=== PATIENT | male | born 2005 | race Caucasian/White ===

== ENCOUNTER 2025-08-11 01:01 | Inpatient (IN) ==
[2025-08-11] MEDS: SODIUM CHLORIDE 0.9% 1,000 ML IV STA (01:14)
[2025-08-11] MEDS: MoRPHine SULFATE 4 MG/ML 1 ML CARP\\VIAL IV PRN (01:14)
[2025-08-11] MEDS: ONDANSETRON INJ 2 MG/ML 2 ML VIAL IV STA ×2 (01:15→03:05)
[2025-08-11] MEDS: ONDANSETRON INJ 2 MG/ML 2 ML VIAL ONE (01:15)
[2025-08-11] MEDS: MoRPHine SULFATE 4 MG/ML 1 ML CARP\\VIAL ONE (01:15)
--- NOTE | 2025-08-11 01:16 | Emergency Department Note ---
History of Present Illness General Chief complaint: Abdominal Pain Stated complaint: ABD PAIN, NAUSEA Time Seen by Provider: 08/11/25 01:07 History of Present Illness Maximum Pain Intensity: 8 This 19-year-old male presents ER complaining of sudden onset of severe mid abdominal pain. He states this feels different than his kidney stone and known hydronephrosis of the ureter. He states his urologist is just observing the hydronephrosis at this time. Patient denies chest pain, dyspnea, fevers, vomiting, diarrhea, penile pain, testicular pain, injury to the area. No alcohol or drug use today. No excessive exercise today. He is tolerating p.o. fluids and food. Home Medications Medication Instructions Recorded Confirmed Type bismuth subsalicylate 262 mg/15 mL 524 mg PO DIRECTED PRN GI 08/11/25 08/11/25 History oral suspension (Pepto-Bismol) UPSET/PAIN Allergies Allergy/AdvReac Type Severity Reaction Status Date / Time No Known Allergies Allergy Verified 08/11/25 01:20 Past Med/Surg History Problem List Ureterolithiasis (Acute) Renal colic on left side (Acute) Intractable abdominal pain (Acute) Bilateral hydronephrosis (Acute) Social History Smoking Status: Former smoker Preferred Language: Turkmen Feels Safe at Home: Yes Review of Systems A total of 10 systems reviewed and were otherwise negative Physical Exam Vital Signs Vital Signs - 24 hr 08/11/25 01:02 08/11/25 01:18 08/11/25 01:18 Temperature 36.3 C L Temperature Source Oral Pulse Rate 88 Pulse Rate [Apical] 63 Respiratory Rate 28 H 16 Respiratory Effort / Characteristics Non-Labored Spontaneous Respiratory Depth Normal Blood Pressure 140/91 Blood Pressure [Right Arm] 137/83 Blood Pressure Mean 107 Blood Pressure Mean [Right Arm] 101 Pulse Oximetry 100 100 100 Oxygen Delivery Method Room Air Room Air Sepsis Recent Fever Within 48 Hours No Sepsis New/Unexplained Change in Mental Status N/A Sepsis Action Taken by Nursing No Action Required 08/11/25 01:30 08/11/25 02:21 Temperature Temperature Source Pulse Rate 59 L Pulse Rate [Apical] 74 Respiratory Rate 18 Respiratory Effort / Characteristics Respiratory Depth Blood Pressure Blood Pressure [Right Arm] 154/120 H Blood Pressure Mean Blood Pressure Mean [Right Arm] 131 Pulse Oximetry 99 Oxygen Delivery Method Room Air Sepsis Recent Fever Within 48 Hours Sepsis New/Unexplained Change in Mental Status Sepsis Action Taken by Nursing VITALS: Vitals are noted on the nurse's note and reviewed by myself. Vital signs stable. GENERAL: Pleasant gentleman who appears in pain, in no acute distress, nondiaphoretic, well-developed well-nourished. SKIN: Capillary reflex less than 2 seconds. HEENT: Normocephalic. PERRLA. EOMI. Nares patent. Mucous membranes moist. Neck is supple without nuchal rigidity. HEART: Regular rate and rhythm LUNGS: Clear to auscultation bilaterally without wheezes, rales or rhonchi. No retractions or accessory muscle use. ABDOMEN: Positive bowel sounds x 4. Normal tympanic percussion. Soft, tender to palpation mid abdomen, without masses or organomegaly. Stauffer sign negative. No guarding or rebound tenderness. no CVA tenderness MUSCULOSKELETAL: No gross musculoskeletal defects. NEURO: Patient was alert and oriented to person place and time. No focal neurological deficits. Course Administered Medications Hydromorphone HCl (Hydromorphone Inj 0.5 Mg/0.5 Ml Syr) 0.5 mg IV Q15M PRN PRN Reason: Pain Stop: 08/25/25 01:59 Last Admin: 08/11/25 02:20 Dose: 0.5 mg Documented By: EMILIANO Morphine Sulfate (Morphine Sulfate 4 Mg/Ml 1 Ml Carp\Vial) 4 mg IV Q15M PRN PRN Reason: Pain Stop: 08/25/25 01:10 Last Admin: 08/11/25 02:10 Dose: 4 mg Documented By: abl Admin: 08/11/25 01:47 Dose: 4 mg Documented By: Admin: 08/11/25 01:29 Dose: 4 mg Documented By: patrick Admin: 08/11/25 01:14 Dose: 4 mg Documented By: JARRETTW Discontinued Medications Sodium Chloride (Nss) 1,000 mls @ 999 mls/hr IV .Q1H1M STA Stop: 08/11/25 02:11 Last Infusion: 08/11/25 02:16 Dose: Infused Documented By: abl Admin: 08/11/25 01:14 Dose: 999 mls/hr Documented By: REMI Sodium Chloride (Nss) 1,000 mls @ 999 mls/hr IV .Q1H1M ONE Stop: 08/11/25 02:26 Last Admin: 08/11/25 02:30 Dose: Not Given Documented By: evan Ioversol (Optiray 320 100ml) 95 ml IV ONCE ONE Stop: 08/11/25 01:57 Last Admin: 08/11/25 01:56 Dose: 95 ml Documented By: GLORIA Morphine Sulfate (Morphine Sulfate 4 Mg/Ml 1 Ml Carp\Vial) Confirm Administered Dose 4 mg .ROUTE .STK-MED ONE Stop: 08/11/25 01:12 Last Admin: 08/11/25 01:15 Dose: Not Given Documented By: REMI Ondansetron HCl (Ondansetron Inj 2 Mg/Ml 2 Ml Vial) Confirm Administered Dose 4 mg .ROUTE .STK-MED ONE Stop: 08/11/25 01:12 Last Admin: 08/11/25 01:15 Dose: Not Given Documented By: REMI Ondansetron HCl (Ondansetron Inj 2 Mg/Ml 2 Ml Vial) 4 mg IV NOW STA Stop: 08/11/25 01:12 Last Admin: 08/11/25 01:15 Dose: 4 mg Documented By: REMI Ondansetron HCl (Ondansetron Inj 2 Mg/Ml 2 Ml Vial) 4 mg IV NOW STA Stop: 08/11/25 03:03 Last Admin: 08/11/25 03:05 Dose: 4 mg Documented By: evan Medical Decision Making Medical Records Attestation: I reviewed the patient's medical records. Home Medications Current Medication List: was personally reviewed by mo Laboratory Data Attestation: I reviewed the patient's lab results. 08/11/25 01:11 08/11/25 01:11 Lab Results 08/11/25 08/11/25 08/11/25 Range/Units 01:11 01:14 01:21 WBC 12.27 H (4.8-10.8) K/ul RBC 4.94 (4.70-6.10) M/uL Hgb 14.1 (14.0-18.0) g/dl POC Hgb 14.3 (14.0-18.0) g/dl Hct 40.5 L (42.0-52.0) % POC Hct 42 (42-52) % MCV 82.0 (80.0-100.0) fL MCH 28.5 (25.0-34.0) pg MCHC 34.8 (32.0-36.0) g/dL RDW Std Deviation 36.5 (36.4-46.3) fL RDW Coeff of Phoebe 12.3 (11.5-14.5) % Plt Count 329 (130-400) K/uL MPV 9.3 L (9.4-12.4) fL Immature Gran % (Auto) 0.2 % Neut % (Auto) 59.2 % Lymph % (Auto) 26.8 % Craig % (Auto) 11.7 % Eos % (Auto) 1.7 % Baso % (Auto) 0.4 % Neut # (Auto) 7.27 H (1.40-6.50) K/uL Lymph # (Auto) 3.29 (1.20-3.40) K/uL Craig # (Auto) 1.43 H (0.11-0.59) K/uL Eos # (Auto) 0.21 (0.00-0.50) K/uL Baso # (Auto) 0.05 (0.00-0.20) K/uL Immature Gran # (Auto) 0.02 (0.01-0.20) K/uL POC Sodium 141 (135-144) mmol/L Sodium 139 (136-145) mmol/L POC Potassium 3.4 (3.3-5.0) mmol/L Potassium 3.5 (3.5-5.1) mmol/L POC Chloride 104 (101-112) mmol/L Chloride 103 (98-107) mmol/L Carbon Dioxide 29 (21-32) mmol/L POC Total CO2 26 (24-31) mmol/L Anion Gap 7 (3-11) POC Anion Gap 15.0 L (16-25) mmol/L POC BUN 21 H (7-18) mg/dl BUN 21 (6-23) mg/dl Creatinine 1.55 H (0.6-1.4) mg/dl POC Creatinine 1.8 H (0.6-1.3) mg/dl Est Cr Clr Drug Dosing 77.8 ml/min eGFR 64.90 BUN/Creatinine Ratio 13.5 (10-20) Glucose 113 H (70-99(Fasting)) mg/dl POC Glucose (other) 114 H (70-99) mg/dl Calcium 10.0 (8.6-10.3) mg/dl POC Ioniz Calcium Sirisha 1.20 (1.12-1.32) mmol/l Total Bilirubin 0.5 (0.2-1.0) mg/dl AST 15 (13-39) U/L ALT 15 (7-52) U/L Alkaline Phosphatase 63 (34-104) U/L Total Creatine Kinase 85 (30-223) U/L Total Protein 7.9 (6.0-8.3) gm/dl Albumin 4.8 (3.4-5.0) gm/dl Globulin 3.1 (2.5-4.0) gm/dl Albumin/Globulin Ratio 1.5 (0.9-2) Lipase 12 (11-82) U/L Urine Color Yellow Urine Appearance Clear (Clear) Urine pH 6.5 (4.5-7.5) Ur Specific [place] 1.021 (1.000-1.030) Urine Protein Negative (Negative) Urine Glucose (UA) Negative (Negative) Urine Ketones Negative (Negative) Urine Blood Negative (Negative) Urine Nitrite Negative (Negative) Urine Bilirubin Negative (Negative) Urine Urobilinogen Negative (Negative) Ur Leukocyte Esterase Trace H (Negative) Urine WBC (Auto) 6-10 H (0-5) /hpf Urine RBC (Auto) 0-2 (0-2) /hpf U Hyaline Cast (Auto) 0-2 (0-2) /lpf U Epithel Cells (Auto) 0-2 (0-2) /hpf Urine Bacteria (Auto) None Seen (None Seen) Urine Comment Imaging Data Attestation: I personally reviewed and interpreted this imaging study as follows: Radiologist's Impression: Abdomen/Pelvis CT 08/11/25 01:11 EXAM: CT abd pelvis IV con only CLINICAL HISTORY: severe mid abd pain TECHNIQUE: Contiguous axial images were obtained from the level of the diaphragm to the pubic symphysis with intravenous contrast. Coronal and sagittal reconstructions were likewise performed and are indicated to increase the sensitivity for detecting clinically relevant pathology. If IV contrast material had not been administered, the likelihood of detecting abnormalities relevant to the patient's condition would have been substantially decreased. The CT scan was performed according to ALARA (as low as reasonably achievable). COMPARISON: 10/17/2022. FINDINGS: The visualized lung bases are clear. The liver is normal in size and attenuation. No focal liver lesions are seen. There is no intra- or extrahepatic biliary ductal dilatation. The hepatic vasculature is patent. The gallbladder is present. The spleen, pancreas, and adrenal glands are unremarkable. The kidneys are normal in size and attenuation. There is moderate to gross bilateral hydronephroureterosis up to the bilateral vesicoureteric junction, with the possibility of bilateral vesicoureteric reflux or bilateral VUJ stricture. Post-contrast evaluation is suggested. Faint hyperdensity is noted involving the left distal ureter, adjacent to the vesicoureteric junction, with the possibility of a tiny calculus or concretion. The bladder is normal in contour. The pelvic viscera are unremarkable. No focal or diffuse bowel wall thickening or evidence of bowel obstruction is identified. No imaging evidence of appendicitis. The abdominal and pelvic vasculature is patent. No adenopathy or fluid collections are seen. No aggressive-appearing osseous lesions are identified. IMPRESSION: There is moderate to gross bilateral hydronephroureterosis up to the bilateral vesicoureteric junction, with the possibility of bilateral vesicoureteric reflux or bilateral VUJ stricture. Post-contrast evaluation is suggested. The findings are stable. Faint hyperdensity is noted involving the left distal ureter, adjacent to the vesicoureteric junction, with the possibility of a tiny calculus or concretion. This is a new finding. No other new interval abnormality since the prior study. Electronically signed by Oni Vieira 08-11-2025 02:43 AM [facility] Narrative Prior records/ancillary studies reviewed. Triage Nursing notes reviewed. Additional history obtained from nursing. The patient's history was concerning for abdominal pain. Differential diagnosis: Etiologies such as appendicitis, diverticulitis, PUD, biliary pathology, UTI, pancreatitis, obstruction, mesenteric ischemia, aortic pathology, infections, inflammatory bowel disease, renal colic, as well as others were entertained. Physical examination findings: As above. ER treatment provided: An order was placed for continuous cardiac monitoring. The monitor shows a rate of 60-100 with a sinus rhythm per my Independent interpretation. Morphine, Zofran, IV fluids x L Dilaudid and Flomax were ordered On reassessment the patient felt better. Diagnostics interpreted by me: The labs Independently Interpreted by myself revealed Mild leukocytosis, slightly elevated creatinine from baseline and patient was given 2 L of fluids. Negative urine for infection. Hematuria noted Imaging studies: Imaging was reviewed and read by radiology Consultation: A consultation was placed with the urologist midlevel, Rinku. the case was discussed and diagnostics were reviewed. The patient was evaluated in the ER for further treatment. Consultation was placed with medicine and the case was discussed. Patient will be admitted to the medical service. Exam and history seem consistent with bilateral hydronephrosis with possible left ureteral colic urolithiasis. Patient was told severe amount of pain. He had multiple rounds of morphine and Dilaudid. He is given Flomax. Creatinine slightly elevated. Urology and medicine were consulted and the case was discussed. Patient will be admitted to the medical service. Patient is agreeable. By the evaluation outlined above emergent etiologies such as appendicitis, diverticulitis, PUD, biliary pathology, UTI, pancreatitis, obstruction, mesenteric ischemia, aortic pathology, infections, inflammatory bowel disease, as well as others were deemed relatively unlikely. The pt informed about the findings as listed above. All questions were answered and pleased with the treatment. The chart was completed utilizing [employer] Speech voice recognition software. Grammatical errors, random word insertions, pronoun errors, and incomplete sentences are an occassional consequence of this system due to software limitations, ambient noise, and hardware issues. Any formal questions or concerns about the content, text, or information contained within the body of this dictation should be directly addressed to the physician outreach assistant for clarification. Impression & Plan Bilateral hydronephrosis, Intractable abdominal pain, Renal colic on left side, Ureterolithiasis Discharge Plan Visit Data Chief Complaint: Abdominal Pain Stated Complaint: ABD PAIN, NAUSEA ED Provider: Abiola Cano ED Midlevel Provider: Anat Barr Discharge Problem: Bilateral hydronephrosis, Intractable abdominal pain, Renal colic on left side, Ureterolithiasis Patient Disposition: Admitted As Inpatient Condition: Good Forms Stand Alone Forms: [employer] Prescriptions Prescriptions: No Action bismuth subsalicylate [Pepto-Bismol] 262 mg/15 mL Suspension 524 mg PO DIRECTED PRN (Reason: GI UPSET/PAIN) Referrals Referrals: PCP,NO [Primary Care Provider] -
[2025-08-11 01:28] LABS: Hematocrit (blood only) 40.5 % (42.0-52.0); Hemoglobin 14.1 g/dl (14.0-18.0); Immature Granulocytes # (auto) 0.02 K/uL (0.01-0.20); Immature Granulocytes % (auto) 0.2 %; Mean Corpuscular Hemoglobin 28.5 pg (25.0-34.0); Mean Corpuscular Volume 82.0 fL (80.0-100.0); Platelet Count 329 K/uL (130-400); RDW Standard Deviation 36.5 fL (36.4-46.3); Red Blood Count 4.94 M/uL (4.70-6.10); White Blood Count 12.27 K/ul (4.8-10.8)
[2025-08-11 01:38] LABS: Appearance Urine Clear (Clear); Bacteria Urine Automated None Seen (None Seen); Cast Urine Automated 0-2 /lpf (0-2); Epithelial Cell Urine Auto 0-2 /hpf (0-2); Glucose Urine UA Negative (Negative); RBC Urine Automated 0-2 /hpf (0-2)
[2025-08-11 01:46] LABS: Alanine Aminotransferase 15.0 U/L (7-52); Albumin Globulin Ratio 1.5 (0.9-2); Albumin Level 4.8 gm/dl (3.4-5.0); Alkaline Phosphatase 63.0 U/L (34-104); Anion Gap 7.0 (3-11); Bilirubin,Total 0.5 mg/dl (0.2-1.0); Blood Urea Nitrogen 21.0 mg/dl (6-23); Calcium 10.0 mg/dl (8.6-10.3); Carbon Dioxide 29.0 mmol/L (21-32); Chloride 103.0 mmol/L (98-107); Creatine Kinase 85.0 U/L (30-223); Creatinine Clr Calc Pharmacy 77.8 ml/min; Globulin 3.1 gm/dl (2.5-4.0); Glucose 113.0 mg/dl (70-99(Fasting)); Lipase 12.0 U/L (11-82); Potassium 3.5 mmol/L (3.5-5.1); Sodium 139.0 mmol/L (136-145); Total Protein 7.9 gm/dl (6.0-8.3)
[2025-08-11] MEDS: OPTIRAY 320 100ml IV ONE (01:56)
[2025-08-11] MEDS: HYDROmorphone INJ 0.5 MG/0.5 ML SYR IV PRN ×2 (02:20→15:01)
[2025-08-11] MEDS: SODIUM CHLORIDE 0.9% 1,000 ML IV ONE (02:30)
--- NOTE | 2025-08-11 02:43 | CT Scan Report ---
EXAM: CT abd pelvis IV con only CLINICAL HISTORY: severe mid abd pain TECHNIQUE: Contiguous axial images were obtained from the level of the diaphragm to the pubic symphysis with intravenous contrast. Coronal and sagittal reconstructions were likewise performed and are indicated to increase the sensitivity for detecting clinically relevant pathology. If IV contrast material had not been administered, the likelihood of detecting abnormalities relevant to the patient's condition would have been substantially decreased. The CT scan was performed according to ALARA (as low as reasonably achievable). COMPARISON: 10/17/2022. FINDINGS: The visualized lung bases are clear. The liver is normal in size and attenuation. No focal liver lesions are seen. There is no intra- or extrahepatic biliary ductal dilatation. The hepatic vasculature is patent. The gallbladder is present. The spleen, pancreas, and adrenal glands are unremarkable. The kidneys are normal in size and attenuation. There is moderate to gross bilateral hydronephroureterosis up to the bilateral vesicoureteric junction, with the possibility of bilateral vesicoureteric reflux or bilateral VUJ stricture. Post-contrast evaluation is suggested. Faint hyperdensity is noted involving the left distal ureter, adjacent to the vesicoureteric junction, with the possibility of a tiny calculus or concretion. The bladder is normal in contour. The pelvic viscera are unremarkable. No focal or diffuse bowel wall thickening or evidence of bowel obstruction is identified. No imaging evidence of appendicitis. The abdominal and pelvic vasculature is patent. No adenopathy or fluid collections are seen. No aggressive-appearing osseous lesions are identified. IMPRESSION: There is moderate to gross bilateral hydronephroureterosis up to the bilateral vesicoureteric junction, with the possibility of bilateral vesicoureteric reflux or bilateral VUJ stricture. Post-contrast evaluation is suggested. The findings are stable. Faint hyperdensity is noted involving the left distal ureter, adjacent to the vesicoureteric junction, with the possibility of a tiny calculus or concretion. This is a new finding. No other new interval abnormality since the prior study. Electronically signed by Oni Vieira 08-11-2025 02:43 AM
--- NOTE | 2025-08-11 03:07 | Urology Consultation ---
Date of Consultation August 11, 2025 Assessment & Plan (1) Bilateral hydronephrosis: I discussed with the treating clinician in the emergency department the patient is being admitted on the hospitalist service. From a urologic perspective we recommend the following: Reviewed patient CT scan shows that he does appear to have chronic bilateral hydronephrosis. An underlying kidney stone on the left side cannot be excluded Provide analgesics Provide antiemetics Provide IV fluid for hydration Follow serial labs Recommend keeping the patient n.p.o. for the present time. He will be reevaluated by our dayshift team on 08/11/2025 and a determination will be made if conservative measures will be continued to be employed if patient will require intervention such as cystoscopy Additional recommendations to be forthcoming based on his clinical course as unfolds History of Present Illness Reason for Consultation: Hydronephrosis History of Present Illness This is a 19-year-old male who presented to the emergency department complaining of severe mid abdominal pain that was sudden in onset. Patient notes that he has a history of kidney stones and sometimes the pain that he experiences with kidney stones is similar to this. He has not had any fevers, shakes, or chills. He denies any nausea or vomiting. The patient says that he has no urinary difficulty specifically denying any dysuria or hematuria. As noted the patient has had a prior history of kidney stones but he notes that he has always been able to successfully pass the kidney stones without requiring any surgical or procedural intervention. Since arrival to hospital this patient has had labs and imaging which I independently reviewed. A CT scan of the abdomen and pelvis showed the patient had moderate to gross bilateral hydronephrosis. The interpreting radiologist raised the possibility of bilateral vesicoureteral reflux or bilateral vesicoureteral strictures. In the distal left ureter there is a faint hyperdensity at the vesicoureteral junction raising the possibility of a tiny calculus. Of note, the patient has had previous CT scans at this facility with the most recent one being on 08/13/2024this study showed the patient had moderate bilateral hydronephrosis. Labs today include a CBC were white blood cell count is 12.2. Hemoglobin is normal with a hematocrit of 40.5. Platelet count is normal. Chemistry profile showed sodium and potassium are normal. The BUN is normal with a creatinine of 1.5. Urinalysis showed trace leukocyte esterase and 6-10 white blood cells per high-power field. There is also no where there is mention that the patient was seen in the emergency department in August 2024. He was noted to have bilateral hydronephrosis as noted above. Although he was not admitted to the hospital at this time this treating clinician in the emergency department did consult with urology via phone and they felt that the patient's hydronephrosis was likely related to reflux or congenital megaureter and was a chronic condition. At the time my interview the patient was in no distress but did complain of continued left-sided abdominal pain. Allergies Allergy/AdvReac Type Severity Reaction Status Date / Time No Known Allergies Allergy Verified 08/11/25 01:20 Home Medications Medication Instructions Recorded Confirmed Type bismuth subsalicylate 262 mg/15 mL 524 mg PO DIRECTED PRN GI 08/11/25 08/11/25 History oral suspension (Pepto-Bismol) UPSET/PAIN Patient History Social History Smoking Status: Former smoker Preferred Language: Luxembourgish Feels Safe at Home: Yes Review of Systems Review of Systems: All systems reviewed & are unremarkable except as noted in HPI & below Physical Exam Constitutional: WD/WN, vitals as above Eyes: no conjunctival abnormality ENMT: Ears: no hearing impairment and no external ear abnormality Mouth: no oropharynx abnormality Neck: trachea midline Respiratory: normal respiratory effort; no respiratory distress and no labored breathing Cardiovascular: Rate/Rhythm: regular rate and regular rhythm Gastrointestinal (Abdomen): At the time of my exam patient's abdomen was soft and nonrigid. There is no rebound tenderness, guarding, or signs of peritonitis. Light and deep palpation did not seem to exacerbate the abdominal pain, particularly in the left side where he complained of pain. There is no CVA tenderness with percussion malcolm aterally Musculoskeletal: No calf tenderness Skin: no rashes Neurologic: moves all extremities Psychiatric: A+Ox3, euthymic affect Genitourinary: No CVA tenderness to percussion bilaterally Results & Data Vital Signs (Past 12 Hours) Vital Signs Temp Pulse Pulse Resp BP BP Pulse Ox 08/11/25 02:21 74 18 154/120 H 99 08/11/25 01:30 59 L 08/11/25 01:18 100 08/11/25 01:18 63 16 137/83 100 08/11/25 01:02 36.3 C L 88 28 H 140/91 100 O2 Del Method 08/11/25 02:21 Room Air 08/11/25 01:30 08/11/25 01:18 Room Air 08/11/25 01:18 08/11/25 01:02 Room Air PG Care Time/CCT Total # of Minutes Spent Total Time Spent with Patient: Total time spent is greater than 50% in coordination of care (as documented) at patient's floor/unit and/or counseling patient: Coding Level of Care Code 90590 IN/OBS CONSULT LVL 5,80M Diagnoses Bilateral hydronephrosis N13.30
[2025-08-11] MEDS: TAMSULOSIN HCL 0.4 MG CAP PO ONE (03:14)
--- NOTE | 2025-08-11 03:20 | History & Physical Report ---
Date of Service August 11, 2025 Assessment & Plan (1) Renal colic on left side: (2) Ureterolithiasis: (3) Bilateral hydronephrosis: (4) Intractable abdominal pain: Plan 19yo male with bilateral hydronephrosis presenting with LLQ/Left flank abdominal pain that started suddenly this evening at midnight. #Renal colic/possible renal stone - Patient with significant pain, no relief with multiple doses of IV Morphine. Uncertain if stone present, not clearly noted on CT imaging. Presence of hydronephrosis which is chronic in nature, worsening from prior. Patient reports that he follows with Urology and being managed conservatively. No UTI -Admit to medical -Strain urine -Keep NPO for now -LR at 100mL/hr x 2L -Pain control with Tylenol and Toradol - FIRST LINE, Dilaudid PRN second line - use opiates sparingly if possible -Zofran PRN nausea -Urology consultation appreciated History of Present Illness Chief Complaint: left flank pain Primary Care Provider: NO PCP Santy Jose is a 19yo male with hydronephrosis presenting with severe left flank pain. Patient developed severe, acute pain in his left flank and left lower abdomen tonight around midnight. He has had nausea but no vomiting. No fever, chills, dysuria, chest pain, cough, SOB. Patient with history of kidney stones - report that they feel similar to his pain today. No additional complaints ER Course: NSS x2L Morphine 4mg IV x 4 doses Zofran 4mg IV x 2 doses Dilaudid 0.5mg IV Flomax 0.4mg PO Fentanyl 50mcg Allergies Allergy/AdvReac Type Severity Reaction Status Date / Time No Known Allergies Allergy Verified 08/11/25 01:20 Home Medications Medication Instructions Recorded Confirmed Type bismuth subsalicylate 262 mg/15 mL 524 mg PO DIRECTED PRN GI 08/11/25 08/11/25 History oral suspension (Pepto-Bismol) UPSET/PAIN Past Med/Surg History Problem List Ureterolithiasis (Acute) Renal colic on left side (Acute) Intractable abdominal pain (Acute) Bilateral hydronephrosis (Acute) Social History Smoking Status: Former smoker Preferred Language: Romanian Feels Safe at Home: Yes Review of Systems Review of Systems: All systems reviewed & are unremarkable except as noted in HPI & below Physical Exam Physical Exam: General: patient in moderate distress secondary to pain Skin: warm, dry, intact, no rashes or lesions HEENT: NC/AT, PERRL, EOMI, anicteric sclera, conjunctiva without injection, external ear normal to inspection and nontender, nares patent, moist mucus membranes, dentition intact, no oropharyngeal lesions, neck supple, trachea midline, no LAD, no thyromegaly, no JVD Heart: +S1/S2, regular, no m/r/g Lungs: equal air entry bilaterally, no rales/rhonchi/wheezes Abd: +BS, soft, ND, pain in left flank and LLQ, no masses/organomegaly/ascites Ext: warm, 2+ pulses in UE/LE bilaterally, no clubbing/cyanosis or edema Neuro: nonfocal, patient AA&O x 4, speech intact, no facial droop, moving all extremities on command with equal strength 5/5 Results & Data Results & Data Vital Signs (Past 12 Hours) Vital Signs Temp Pulse Pulse Resp BP BP Pulse Ox 08/11/25 02:21 74 18 154/120 H 99 08/11/25 01:30 59 L 08/11/25 01:18 100 08/11/25 01:18 63 16 137/83 100 08/11/25 01:02 36.3 C L 88 28 H 140/91 100 O2 Del Method 08/11/25 02:21 Room Air 08/11/25 01:30 08/11/25 01:18 Room Air 08/11/25 01:18 08/11/25 01:02 Room Air Laboratory Results Laboratory Results WBC 12.27 K/ul (4.8-10.8) H 08/11/25 01:11 RBC 4.94 M/uL (4.70-6.10) 08/11/25 01:11 Hgb 14.1 g/dl (14.0-18.0) 08/11/25 01:11 POC Hgb 14.3 g/dl (14.0-18.0) 08/11/25 01:21 Hct 40.5 % (42.0-52.0) L 08/11/25 01:11 POC Hct 42 % (42-52) 08/11/25 01:21 MCV 82.0 fL (80.0-100.0) 08/11/25 01:11 MCH 28.5 pg (25.0-34.0) 08/11/25 01:11 MCHC 34.8 g/dL (32.0-36.0) 08/11/25 01:11 RDW Std Deviation 36.5 fL (36.4-46.3) 08/11/25 01:11 RDW Coeff of Phoebe 12.3 % (11.5-14.5) 08/11/25 01:11 Plt Count 329 K/uL (130-400) 08/11/25 01:11 MPV 9.3 fL (9.4-12.4) L 08/11/25 01:11 Immature Gran % (Auto) 0.2 % 08/11/25 01:11 Neut % (Auto) 59.2 % 08/11/25 01:11 Lymph % (Auto) 26.8 % 08/11/25 01:11 [place] % (Auto) 11.7 % 08/11/25 01:11 Eos % (Auto) 1.7 % 08/11/25 01:11 Baso % (Auto) 0.4 % 08/11/25 01:11 Neut # (Auto) 7.27 K/uL (1.40-6.50) H 08/11/25 01:11 Lymph # (Auto) 3.29 K/uL (1.20-3.40) 08/11/25 01:11 [place] # (Auto) 1.43 K/uL (0.11-0.59) H 08/11/25 01:11 Eos # (Auto) 0.21 K/uL (0.00-0.50) 08/11/25 01:11 Baso # (Auto) 0.05 K/uL (0.00-0.20) 08/11/25 01:11 Immature Gran # (Auto) 0.02 K/uL (0.01-0.20) 08/11/25 01:11 POC Sodium 141 mmol/L (135-144) 08/11/25 01:21 Sodium 139 mmol/L (136-145) 08/11/25 01:11 POC Potassium 3.4 mmol/L (3.3-5.0) 08/11/25 01:21 Potassium 3.5 mmol/L (3.5-5.1) 08/11/25 01:11 POC Chloride 104 mmol/L (101-112) 08/11/25 01:21 Chloride 103 mmol/L (98-107) 08/11/25 01:11 Carbon Dioxide 29 mmol/L (21-32) 08/11/25 01:11 POC Total CO2 26 mmol/L (24-31) 08/11/25 01:21 Anion Gap 7 (3-11) 08/11/25 01:11 POC Anion Gap 15.0 mmol/L (16-25) L 08/11/25 01:21 POC BUN 21 mg/dl (7-18) H 08/11/25 01:21 BUN 21 mg/dl (6-23) 08/11/25 01:11 Creatinine 1.55 mg/dl (0.6-1.4) H 08/11/25 01:11 POC Creatinine 1.8 mg/dl (0.6-1.3) H 08/11/25 01:21 Est Cr Clr Drug Dosing 77.8 ml/min 08/11/25 01:11 eGFR 64.90 08/11/25 01:11 BUN/Creatinine Ratio 13.5 (10-20) 08/11/25 01:11 Glucose 113 mg/dl (70-99(Fasting)) H 08/11/25 01:11 POC Glucose (other) 114 mg/dl (70-99) H 08/11/25 01:21 Calcium 10.0 mg/dl (8.6-10.3) 08/11/25 01:11 POC Ioniz Calcium [place]ir[place] 1.20 mmol/l (1.12-1.32) 08/11/25 01:21 Total Bilirubin 0.5 mg/dl (0.2-1.0) 08/11/25 01:11 AST 15 U/L (13-39) 08/11/25 01:11 ALT 15 U/L (7-52) 08/11/25 01:11 Alkaline Phosphatase 63 U/L (34-104) 08/11/25 01:11 Total Creatine Kinase 85 U/L (30-223) 08/11/25 01:11 Total Protein 7.9 gm/dl (6.0-8.3) 08/11/25 01:11 Albumin 4.8 gm/dl (3.4-5.0) 08/11/25 01:11 Globulin 3.1 gm/dl (2.5-4.0) 08/11/25 01:11 Albumin/Globulin Ratio 1.5 (0.9-2) 08/11/25 01:11 Lipase 12 U/L (11-82) 08/11/25 01:11 Urine Color Yellow 08/11/25 01:14 Urine Appearance Clear (Clear) 08/11/25 01:14 Urine pH 6.5 (4.5-7.5) 08/11/25 01:14 Ur Specific Maxwell 1.021 (1.000-1.030) 08/11/25 01:14 Urine Protein Negative (Negative) 08/11/25 01:14 Urine Glucose (UA) Negative (Negative) 08/11/25 01:14 Urine Ketones Negative (Negative) 08/11/25 01:14 Urine Blood Negative (Negative) 08/11/25 01:14 Urine Nitrite Negative (Negative) 08/11/25 01:14 Urine Bilirubin Negative (Negative) 08/11/25 01:14 Urine Urobilinogen Negative (Negative) 08/11/25 01:14 Ur Leukocyte Esterase Trace (Negative) H 08/11/25 01:14 Urine WBC (Auto) 6-10 /hpf (0-5) H 08/11/25 01:14 Urine RBC (Auto) 0-2 /hpf (0-2) 08/11/25 01:14 U Hyaline Cast (Auto) 0-2 /lpf (0-2) 08/11/25 01:14 U Epithel Cells (Auto) 0-2 /hpf (0-2) 08/11/25 01:14 Urine Bacteria (Auto) None Seen (None Seen) 08/11/25 01:14 Urine Comment 08/11/25 01:14 Impressions Abdomen/Pelvis CT 08/11/25 01:11 EXAM: CT abd pelvis IV con only CLINICAL HISTORY: severe mid abd pain TECHNIQUE: Contiguous axial images were obtained from the level of the diaphragm to the pubic symphysis with intravenous contrast. Coronal and sagittal reconstructions were likewise performed and are indicated to increase the sensitivity for detecting clinically relevant pathology. If IV contrast material had not been administered, the likelihood of detecting abnormalities relevant to the patient's condition would have been substantially decreased. The CT scan was performed according to ALARA (as low as reasonably achievable). COMPARISON: 10/17/2022. FINDINGS: The visualized lung bases are clear. The liver is normal in size and attenuation. No focal liver lesions are seen. There is no intra- or extrahepatic biliary ductal dilatation. The hepatic vasculature is patent. The gallbladder is present. The spleen, pancreas, and adrenal glands are unremarkable. The kidneys are normal in size and attenuation. There is moderate to gross bilateral hydronephroureterosis up to the bilateral vesicoureteric junction, with the possibility of bilateral vesicoureteric reflux or bilateral VUJ stricture. Post-contrast evaluation is suggested. Faint hyperdensity is noted involving the left distal ureter, adjacent to the vesicoureteric junction, with the possibility of a tiny calculus or concretion. The bladder is normal in contour. The pelvic viscera are unremarkable. No focal or diffuse bowel wall thickening or evidence of bowel obstruction is identified. No imaging evidence of appendicitis. The abdominal and pelvic vasculature is patent. No adenopathy or fluid collections are seen. No aggressive-appearing osseous lesions are identified. IMPRESSION: There is moderate to gross bilateral hydronephroureterosis up to the bilateral vesicoureteric junction, with the possibility of bilateral vesicoureteric reflux or bilateral VUJ stricture. Post-contrast evaluation is suggested. The findings are stable. Faint hyperdensity is noted involving the left distal ureter, adjacent to the vesicoureteric junction, with the possibility of a tiny calculus or concretion. This is a new finding. No other new interval abnormality since the prior study. Electronically signed by Oni Vieira 08-11-2025 02:43 AM PG Care Time/CCT Total # of Minutes Spent Total Time Spent with Patient: Total time spent is greater than 50% in coordination of care (as documented) at patient's floor/unit and/or counseling patient: Coding Level of Care Code 68935 INT INP/OBS CARE 3/75MIN Diagnoses Renal colic on left side N23 Ureterolithiasis N20.1 Bilateral hydronephrosis N13.30 Intractable abdominal pain R10.9
[2025-08-11] MEDS: PROCHLORPERAZINE 5 MG in SYRINGE 4 ML IV ONE (04:49)
[2025-08-11] MEDS ORDERED: DOCUSATE SODIUM 100 MG CAP PO PRN (05:09)
[2025-08-11] MEDS ORDERED: ONDANSETRON INJ 2 MG/ML 2 ML VIAL IV PRN (05:09)
[2025-08-11] MEDS ORDERED: ACETAMINOPHEN 325 MG TAB PO PRN (05:09)
[2025-08-11] MEDS ORDERED: HYDROmorphone INJ 0.5 MG/0.5 ML SYR IV PRN (05:09)
[2025-08-11] MEDS: KETOROLAC 30 MG/ML VIAL IV PRN (05:29)
[2025-08-11] MEDS: LACTATED RINGER'S 1,000 ML IV SCH (05:31)
[2025-08-11 09:15] LABS: Anion Gap 5.0 (3-11); Blood Urea Nitrogen 22.0 mg/dl (6-23); Calcium 9.2 mg/dl (8.6-10.3); Carbon Dioxide 27.0 mmol/L (21-32); Chloride 108.0 mmol/L (98-107); Creatinine Clr Calc Pharmacy 65.2 ml/min; Glucose 109.0 mg/dl (70-99(Fasting)); Potassium 4.5 mmol/L (3.5-5.1); Sodium 140.0 mmol/L (136-145)
--- NOTE | 2025-08-11 11:13 | Urology Progress Note ---
Date of Service August 11, 2025 Assessment & Plan (1) Bilateral hydronephrosis: Plan: 19-year-old male with history of bilateral nephrolithiasis admitted for acute left abdominal and flank pain. Patient afebrile, stable vitals Labs reviewedcreatinine increased to 1.85, WBC 12.27, hemoglobin 14.1 Urinalysis on arrival with trace LE, 6-10 WBC, negative for bacteria CT abdomen pelvis with IV contrast reviewed and discussed Bilateral hydroureteronephrosis appears grossly stable from prior scans, finding in left distal ureter does not appear consistent with stone, possibly debris Findings could be due to congenital megaureter, vesicoureteral reflux, posterior urethral valves, or possibly UVJ obstruction- his prior urology work-up is unknown Subjectively he is feeling much better this morning, no pain Patient's mother was on the phone at time of visit Patient follows with urology at home in [place], previously followed with pediatric urology and conservative management was favored and now following with another urologist No acute surgical intervention planned at this time Recommend continue with supportive care and trend labs Recommend follow-up with his urologist for ongoing management will follow peripherally, please contact our service with any additional questions or concerns Admission and Anticipated Discharge Date Admission Date: August 11, 2025 Subjective Patient seen and examined at bedside this morning. He was resting in bed. Reports he is feeling much better this morning, no abdominal or flank pain. No fever or chills. No nausea or vomiting at present. Voiding without difficulty. He reports he has followed with urology at home in [place]. Review of Systems Constitutional: as per Subjective / HPI Genitourinary: + as per Subjective / HPI Physical Exam Constitutional: well developed and well nourished; no acute distress Respiratory: normal respiratory effort; no respiratory distress and no labored breathing Gastrointestinal (Abdomen): Inspection/Auscultation: abdomen normal to inspection Musculoskeletal: Head/Neck/Chest: normocephalic Neurologic: moves all extremities and awake Psychiatric: Orientation: alert and oriented x 3 Results & Data Vital Signs (Past 12 Hours) Vital Signs Temp Pulse Pulse Resp BP BP Pulse Ox 08/11/25 07:32 36.6 C 62 18 119/60 95 08/11/25 05:05 36.6 C 71 18 153/89 H 92 08/11/25 04:53 85 20 150/93 H 100 08/11/25 04:00 82 20 155/95 H 100 08/11/25 02:21 74 18 154/120 H 99 08/11/25 01:30 59 L 08/11/25 01:18 100 08/11/25 01:18 63 16 137/83 100 08/11/25 01:02 36.3 C L 88 28 H 140/91 100 O2 Del Method O2 Flow Rate 08/11/25 07:32 Room Air 08/11/25 05:05 Room Air 08/11/25 04:53 Nasal Cannula 2 08/11/25 04:00 Nasal Cannula 2 08/11/25 02:21 Room Air 08/11/25 01:30 08/11/25 01:18 Room Air 08/11/25 01:18 08/11/25 01:02 Room Air PG Care Time/CCT Total # of Minutes Spent Total Time Spent with Patient: Total time spent is greater than 50% in coordination of care (as documented) at patient's floor/unit and/or counseling patient: Coding Level of Care Code 93276 SUB INP/OBS CARE 2/35MIN Diagnoses Bilateral hydronephrosis N13.30
--- NOTE | 2025-08-11 16:53 | History & Physical Bridge Note ---
Date of Service August 11, 2025 History & Physical Bridge Note I have examined the patient, reviewed the History & Physical and in the interval since the performance of the History & Physical I have noted the following changes of clinical significance: Pt continues to have left mid abdominal pain, requiring IV pain meds. 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 He had no h/o UTIs throughout childhood and only started developing kidney stones in the last 2 years. He does take creatine supplements for working out but hasn't taken any in a few days. He is making urine today. 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 With possible left distal ureteral stone vs debris. COntinues to have pain and worsening EVETTE. -continue IVFs -start scheduled tamsulosin-did get one dose in ED -no UTI -follow BMP in AM -if ongoing pain, worsening EVETTE, will d/w Urology about ureteroscopy
[2025-08-11] MEDS: HYDROmorphone INJ 0.5 MG/0.5 ML SYR IV STA (16:56)
[2025-08-11] MEDS: TAMSULOSIN HCL 0.4 MG CAP PO SCH (20:51)
[2025-08-12 07:18] VITALS: BP 114/66; RESP 16; TEMP 98.4; O2SAT 96
[2025-08-12 07:23] LABS: Hematocrit (blood only) 37.0 % (42.0-52.0); Hemoglobin 12.8 g/dl (14.0-18.0); Mean Corpuscular Hemoglobin 28.4 pg (25.0-34.0); Mean Corpuscular Volume 82.2 fL (80.0-100.0); Platelet Count 259 K/uL (130-400); RDW Standard Deviation 36.7 fL (36.4-46.3); Red Blood Count 4.50 M/uL (4.70-6.10); White Blood Count 9.08 K/ul (4.8-10.8)
[2025-08-12 07:44] LABS: Anion Gap 6.0 (3-11); Blood Urea Nitrogen 17.0 mg/dl (6-23); Calcium 8.7 mg/dl (8.6-10.3); Carbon Dioxide 29.0 mmol/L (21-32); Chloride 105.0 mmol/L (98-107); Creatinine Clr Calc Pharmacy 92.8 ml/min; Glucose 94.0 mg/dl (70-99(Fasting)); Potassium 3.9 mmol/L (3.5-5.1); Sodium 140.0 mmol/L (136-145)
--- NOTE | 2025-08-12 08:42 | Discharge Summary ---
Discharge Summary Date of Service August 12, 2025 Principal Dx & Hospital Course #1 = Principal Diagnosis (1) Renal colic on left side: (2) Ureterolithiasis: (3) Bilateral hydronephrosis: (4) Intractable abdominal pain: Plan 19yo male with bilateral hydronephrosis presenting with LLQ/Left flank abdominal pain that started suddenly this evening at midnight. #Renal colic/possible renal stone - Patient with significant pain, no relief with multiple doses of IV Morphine. Uncertain if stone present, not clearly noted on CT imaging. Presence of hydronephrosis which is chronic in nature, worsening from prior. Patient reports that he follows with Urology and being managed conservatively. No UTI -Admit to medical -Strain urine -Keep NPO for now -LR at 100mL/hr x 2L -Pain control with Tylenol and Toradol - FIRST LINE, Dilaudid PRN second line - use opiates sparingly if possible -Zofran PRN nausea -Urology consultation appreciated Pt continues to have left mid abdominal pain, requiring IV pain meds. 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 He had no h/o UTIs throughout childhood and only started developing kidney stones in the last 2 years. He does take creatine supplements for working out but hasn't taken any in a few days. He is making urine today. 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 With possible left distal ureteral stone vs debris. COntinues to have pain and worsening EVETTE. -continue IVFs -start scheduled tamsulosin-did get one dose in ED -no UTI -follow BMP in AM -if ongoing pain, worsening EVETTE, will d/w Urology about ureteroscopy Admission HPI Per Admitting Provider Santy Jose is a 19yo male with hydronephrosis presenting with severe left flank pain. Patient developed severe, acute pain in his left flank and left lower abdomen tonight around midnight. He has had nausea but no vomiting. No fever, chills, dysuria, chest pain, cough, SOB. Patient with history of kidney stones - report that they feel similar to his pain today. No additional complaints ER Course: NSS x2L Morphine 4mg IV x 4 doses Zofran 4mg IV x 2 doses Dilaudid 0.5mg IV Flomax 0.4mg PO Fentanyl 50mcg Discharge Plan Discharge Items Patient Disposition: Home - Self-Care Reason For Visit: LEFT FLANK PAIN, HYDRONEPHROSIS Discharge Diagnosis: Left flank pain, possible left ureteral obstruction Acute kidney injury Bilateral hydronephrosis Condition on Discharge: Good Activity: Resume your previous activity Non-emergency contact: Primary Care Provider and Urologist Call non-emergency contact if: you have any medication questions, your symptoms worsen, your pain is not controlled and you have a fever Follow-up/Referrals: PCP,NO [Primary Care Provider] - Diet: Regular Addtl Attending Provider Instructions: You were admitted with abdominal pain and a possible kidney stone versus blockage of your left ureter. You had some decrease in your kidney function which improved by the day of discharge. Please continue to drink plenty of flu ids after discharge and follow-up with urology. Pending Studies at Discharge: No Stand-Alone Forms: [employer], Smoking Cessation Medications and DC Order Prescriptions: Continued bismuth subsalicylate [Pepto-Bismol] 262 mg/15 mL Suspension 524 mg PO DIRECTED PRN (Reason: GI UPSET/PAIN) Admission Data Admit Date/Time: 08/11/25 03:20 Attending Provider: Arianna Sims Admit Provider: Patti Angulo Primary Care Provider: PCP,NO Other Providers: Carl Valdez; Patti Angulo Hospital Stay Data Consultations 08/11/25 02:49 ED Decision to Admit Stat 08/11/25 06:00 Consult Urology Routine 08/12/25 08:40 Burn CD for patient Stat Diagnostic Imagining Performed 08/11/25 01:11 CT abd pelvis IV con only Stat Pending Results Patient Have Any Pending Studies at Discharge: No Discharge Instructions Given to Patient (Per Discharging Provider) You were admitted with abdominal pain and a possible kidney stone versus blockage of your left ureter. You had some decrease in your kidney function which improved by the day of discharge. Please continue to drink plenty of fluids after discharge and follow-up with urology. Coding Diagnoses Renal colic on left side N23 Ureterolithiasis N20.1 Bilateral hydronephrosis N13.30 Intractable abdominal pain R10.9
[2025-08-12 08:49] VITALS: PULSE 75
== END 2025-08-12 10:44 | disposition home or self-care (01) | DRG 694 ==
LOC: ED 01:01 → 3N 03:20 → SUATTDRO 03:20 → 3N 05:00

== ENCOUNTER 2025-09-08 10:47 | Observation (INO) ==
[2025-09-08] MEDS: ONDANSETRON INJ 2 MG/ML 2 ML VIAL IV STA (11:47)
[2025-09-08] MEDS: HYDROmorphone INJ 0.5 MG/0.5 ML SYR IV STA (11:47)
--- NOTE | 2025-09-08 11:49 | Emergency Department Note ---
Impression & Plan Calculus of distal right ureter, Congenital obstructive megaureter, Intractable abdominal pain ED Provider Note CHIEF COMPLAINT: Right flank pain HISTORY OF PRESENT ILLNESS: This 19-year-old male patient presents to the emergency department via private vehicle for evaluation of right flank pain. The patient has history of congenital obstructive megaureter and was seen here in the emergency department at about 3 AM and diagnosed with a 9 x 4 mm distal right ureteral stone. The patient's pain was managed well in the emergency department and attempt was made for him to go home and control his pain with p.o. medications. The patient states he got home early this morning. He took an oxycodone at about 9 AM and about 30 minutes later, his pain was intractable again. He did take 200 mg ibuprofen without relief. The patient return to the emergency department due to the intractable pain. He denies any new urinary symptoms. He denies any fever or chills. No body aches. He denies any other associated symptoms. He does follow with urology locally as well as in [place]. History provided by: Patient REVIEW OF SYSTEMS: A 10 system review of systems was performed with positives and pertinent negatives listed in the history of present illness. All other systems were reviewed and are negative. ALLERGIES: NKDA PHYSICAL EXAM: VITALS: Vitals are noted on the nurse's note and reviewed by myself. GENERAL: This is a 19-year-old male, in no acute distress, nondiaphoretic, well- developed well-nourished. SKIN: The skin was without rashes, erythema, edema, or bruising. There is no tenting of the skin. Capillary refill less than 2 seconds. HEAD: Normocephalic atraumatic. EYES: Conjunctivae without injection, sclerae without icterus. MOUTH: Mucous membranes moist. NECK: Supple without nuchal rigidity. No lymphadenopathy. HEART: Regular rate and rhythm without murmurs gallops or rubs. LUNGS: Clear to auscultation bilaterally without wheezes, rales or rhonchi. No retractions or accessory muscle use. ABDOMEN: Positive bowel sounds x 4. Right lower quadrant tenderness to palpation. Abdomen otherwise soft, nontender, without masses or organomegaly. No guarding or rebound tenderness. Right CVA tenderness. MUSCULOSKELETAL: No muscle atrophy, erythema, or edema noted. Full range of motion without joint tenderness in all extremities. No tenderness to palpation. Normal gait. Strength 5/5 throughout. NEURO: Patient was alert and oriented to person place and time. Normal sensation to light and sharp touch. Deep tendon reflexes 2+ throughout. No focal neurological deficits. An order was placed for continuous medical malpractice paralegal. The monitor showed a normal sinus rhythm at a ventricular rate of 62 bpm, per my interpretation. Imaging as interpreted by myself and the radiologist revealed nonvisualization of prior stone noted on CT, with radiologist interpretation as above. I agree with the radiologist's findings as based upon my independent interpretation. EMERGENCY DEPARTMENT COURSE: The patient was evaluated as above. The patient presents to the emergency department for persistent right flank pain. He was here overnight diagnosed with a 9 x 4 mm distal right ureteral stone. Attempt was made to utilize p.o. analgesics at home and the patient was unable to manage his pain. He returned to the emergency department due to intractable pain. IV access was obtained, labs were drawn. Patient was medicated with IV Dilaudid and Zofran, as he has done well on these medications in the past. KUB was ordered. This was reviewed by myself radiologist as noted. Labs reviewed. Per my interpretation, no leukocytosis or concerning anemia. No thrombocytopenia. CMP is pending at the time of admission. Given the patient's intractable pain, I did recommend admission. I discussed the case with the [facility] hospitalist. Please see hospitalist dictation regarding ongoing management and final disposition of this pain patient. Did notify urology of patient and pending admission. This visit is during a period of high volume and high acuity in the emergency department. I attest that I have personally reviewed the patient medication list. I attest that I have reviewed the patient's blood pressure and it was found to be normal GCS: 15 In the evaluation and treatment of this patient the following differential diagnoses were entertained: Renal colic, UTI, appendicitis, diverticulitis, mesenteric ischemia, aortic pathology, infections, inflammatory bowel disease, PUD, biliary pathology, as well as other pathologies. The chart was completed utilizing [employer] voice recognition software. Grammatical errors, random word insertions, pronoun errors, and incomplete sentences are an occasional consequence of this system due to software limitations, ambient noise, and hardware issues. Any formal questions or concerns about the content, text, or information contained within the body of this dictation should be directly addressed to the provider for clarification. Past Med/Surg History Problem List (Updated 09/08/25 @ 12:25 by Malinda Hagen PA-C) Congenital obstructive megaureter (Acute) Calculus of distal right ureter (Acute) Ureterolithiasis (Acute) Renal colic on left side (Acute) Intractable abdominal pain (Acute) Bilateral hydronephrosis (Acute) Social History Smoking Status: Never smoker Hx Alcohol Use: Yes Alcohol type: beer and hard liquor Hx Substance Use: No Preferred Language: Belizean Communication Ability: Effective Photocopy Operator Required: No Beliefs That Will Affect Care: None Current Living Situation: Alone Current Living Situation Comment: apartment, [email or web address] student Feels Safe at Home: Yes Assistive Devices: None Allergies Allergies Allergy/AdvReac Type Severity Reaction Status Date / Time No Known Allergies Allergy Verified 08/19/25 08:12 Home Meds Home Medications Medication Instructions Recorded Confirmed bismuth subsalicylate 262 mg/15 mL 524 mg PO DIRECTED PRN GI 08/11/25 09/08/25 oral suspension (Pepto-Bismol) UPSET/PAIN Previous Rx's Medication Instructions Recorded ondansetron 4 mg disintegrating 4 mg PO Q6H PRN nausea and 09/08/25 tablet vomiting #20 tabs oxycodone 5 mg tablet 5 mg PO Q6H #12 tabs 09/08/25 tamsulosin 0.4 mg capsule (Flomax) 0.4 mg PO DAILY #7 caps 09/08/25 Results & Data (ED) Vital Signs Vital Signs - 24 hr 09/08/25 11:03 09/08/25 11:15 Temperature 36.5 C Temperature Source Temporal Artery Scan Pulse Rate 66 Pulse Rate [Finger] 56 L Respiratory Rate 18 18 Respiratory Effort / Characteristics Non-Labored Spontaneous Respiratory Depth Normal Blood Pressure [Right Arm] 129/92 Blood Pressure Mean [Right Arm] 104 Blood Pressure Position Sitting Pulse Oximetry 95 94 Oxygen Delivery Method Room Air Room Air Sepsis Recent Fever Within 48 Hours No Sepsis New/Unexplained Change in Mental Status No Sepsis Action Taken by Nursing No Action Required Laboratory Data 09/08/25 11:45 09/08/25 11:45 Lab Results 09/08/25 Range/Units 11:45 WBC 9.76 (4.8-10.8) K/ul RBC 4.73 (4.70-6.10) M/uL Hgb 13.3 L (14.0-18.0) g/dl Hct 39.2 L (42.0-52.0) % MCV 82.9 (80.0-100.0) fL MCH 28.1 (25.0-34.0) pg MCHC 33.9 (32.0-36.0) g/dL RDW Std Deviation 36.9 (36.4-46.3) fL RDW Coeff of Phoebe 12.1 (11.5-14.5) % Plt Count 285 (130-400) K/uL MPV 9.7 (9.4-12.4) fL Immature Gran % (Auto) 0.5 % Neut % (Auto) 70.4 % Lymph % (Auto) 17.9 % Ware % (Auto) 9.9 % Eos % (Auto) 0.9 % Baso % (Auto) 0.4 % Neut # (Auto) 6.86 H (1.40-6.50) K/uL Lymph # (Auto) 1.75 (1.20-3.40) K/uL Ware # (Auto) 0.97 H (0.11-0.59) K/uL Eos # (Auto) 0.09 (0.00-0.50) K/uL Baso # (Auto) 0.04 (0.00-0.20) K/uL Immature Gran # (Auto) 0.05 (0.01-0.20) K/uL Administered Medications Discontinued Medications Hydromorphone HCl (Hydromorphone Inj 0.5 Mg/0.5 Ml Syr) 0.5 mg IV NOW STA Stop: 09/08/25 11:37 Last Admin: 09/08/25 11:47 Dose: 0.5 mg Documented By: bo Ondansetron HCl (Ondansetron Inj 2 Mg/Ml 2 Ml Vial) 4 mg IV NOW STA Stop: 09/08/25 11:37 Last Admin: 09/08/25 11:47 Dose: 4 mg Documented By: bo Imaging Data Radiologist's Impression: KUB X-Ray 09/08/25 11:36 KUB HISTORY: right ureteral stone, worsening pain COMPARISON STUDY: None FINDINGS: There is moderate retained stool. No bowel obstruction seen. Inferior aspect of the pelvis is off the field of view inferiorly. A faint distal ureteral calculus on the right seen on the prior CT is not visualized by plain film. IMPRESSION: As above. ACT 112: Negative or not required by law. The above report was generated using voice recognition software. It may contain grammatical, syntax or spelling errors. Electronically signed by: Wang Hurt M.D. 09/08/2025 12:19 PM Discharge Plan Visit Data Chief Complaint: Flank Pain Stated Complaint: JUST DISCHARGED THIS AM, KIDNEY ISSUE/PAIN ED Provider: Jose Sosa ED Midlevel Provider: Malinda Hagen Discharge Problem: Calculus of distal right ureter, Congenital obstructive megaureter, Intractable abdominal pain Patient Disposition: Admitted As Inpatient Condition: Good Forms Stand Alone Forms: [facility] Prescriptions Prescriptions: No Action tamsulosin [Flomax] 0.4 mg capsule 0.4 mg PO DAILY Qty: 7 0RF ondansetron 4 mg tablet,disintegrating 4 mg PO Q6H PRN (Reason: nausea and vomiting) Qty: 20 0RF oxycodone 5 mg tablet 5 mg PO Q6H Qty: 12 0RF Rx Instructions: Initial Treatment bismuth subsalicylate [Pepto-Bismol] 262 mg/15 mL Suspension 524 mg PO DIRECTED PRN (Reason: GI UPSET/PAIN) Referrals Referrals: [facility] [Primary Care Provider] -
[2025-09-08 12:17] LABS: Hematocrit (blood only) 39.2 % (42.0-52.0); Hemoglobin 13.3 g/dl (14.0-18.0); Immature Granulocytes # (auto) 0.05 K/uL (0.01-0.20); Immature Granulocytes % (auto) 0.5 %; Mean Corpuscular Hemoglobin 28.1 pg (25.0-34.0); Mean Corpuscular Volume 82.9 fL (80.0-100.0); Platelet Count 285 K/uL (130-400); RDW Standard Deviation 36.9 fL (36.4-46.3); Red Blood Count 4.73 M/uL (4.70-6.10); White Blood Count 9.76 K/ul (4.8-10.8)
--- NOTE | 2025-09-08 12:21 | XRay Report ---
KUB HISTORY: right ureteral stone, worsening pain COMPARISON STUDY: None FINDINGS: There is moderate retained stool. No bowel obstruction seen. Inferior aspect of the pelvis is off the field of view inferiorly. A faint distal ureteral calculus on the right seen on the prior CT is not visualized by plain film. IMPRESSION: As above. ACT 112: Negative or not required by law. The above report was generated using voice recognition software. It may contain grammatical, syntax o r spelling errors. Electronically signed by: Wang Hurt M.D. 09/08/2025 12:19 PM
[2025-09-08] MEDS ORDERED: ONDANSETRON INJ 2 MG/ML 2 ML VIAL IV PRN (12:27)
[2025-09-08] MEDS ORDERED: HYDROmorphone INJ 0.5 MG/0.5 ML SYR IV PRN (12:29)
--- NOTE | 2025-09-08 12:34 | History & Physical Report ---
Date of Service September 08, 2025 Assessment & Plan (1) Calculus of distal right ureter: Plan: Assessment: 1. Right-sided hydronephrosis with distal right-sided minor by 4 mm urolithiasis. Appears to be probable sludge. Urology consulted. They did offer stenting. At this time the patient would like to wait and see if he does well with symptom control and able to pass his current urolithiasis. Will allow the patient to eat. IV fluids. Strain all urine. 2. 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 Plan: As discussed above. We did discuss with the patient if he should spike a white count or fever or show any clinical signs of sepsis such as tachycardia or hypotension we would recommend progressing to the OR for stenting. He voiced understanding. Please refer to orders for further planning. History of Present Illness Chief Complaint: Flank pain, hydronephrosis/hydroureter/urolithiasis. 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 He has a history of nephrolithiasis and urolithiasis. He was in the ER last night for an extended period of time diagnosed with a 9 x 4 distal right ureter stone. He was treated medically and discharged to home. He took his analgesics and Flomax excetra he is having intractable pain and therefore presents back to the ER today. Urology was consulted. We were called admit the patient for further evaluation and treatment failed outpatient treatment of urolithiasis with hydronephrosis. Allergies Allergy/AdvReac Type Severity Reaction Status Date / Time No Known Allergies Allergy Verified 08/19/25 08:12 Home Medications Medication Instructions Recorded Confirmed Type bismuth subsalicylate 262 mg/15 mL 524 mg PO DIRECTED PRN GI 08/11/25 09/08/25 History oral suspension (Pepto-Bismol) UPSET/PAIN ondansetron 4 mg disintegrating 4 mg PO Q6H PRN nausea and 09/08/25 Rx tablet vomiting #20 tabs oxycodone 5 mg tablet 5 mg PO Q6H #12 tabs 09/08/25 Rx tamsulosin 0.4 mg capsule (Flomax) 0.4 mg PO DAILY #7 caps 11/03/25 Rx Past Med/Surg History Problem List (Updated 09/08/25 @ 12:25 by Malinda Hagen PA-C) Congenital obstructive megaureter (Acute) Calculus of distal right ureter (Acute) Ureterolithiasis (Acute) Renal colic on left side (Acute) Intractable abdominal pain (Acute) Bilateral hydronephrosis (Acute) Social History Smoking Status: Never smoker Hx Alcohol Use: Yes Alcohol type: beer and hard liquor Hx Substance Use: No Preferred Language: Colombian Communication Ability: Effective Education Dean Required: No Beliefs That Will Affect Care: None Current Living Situation: Alone Current Living Situation Comment: apartment, [employer] student Feels Safe at Home: Yes Assistive Devices: None Review of Systems Review of Systems: A 10 point review of system was obtained and unless otherwise stated here or in history of present illness are negative and noncontributory to chief complaint. Physical Exam Physical Exam: In General: In general very pleasant 19-year-old male is alert and oriented x 3 time of exam. He did receive Dilaudid in the ER he is fairly comfortable with this. He has no other complaints. Were accompanied by the DANIELA from [id number] our evaluation. HEENT: Normocephalic atraumatic pupils are equal round and reactive to light bilaterally. No scleral icterus no conjunctival injection external auditory canals are patent septum is in the midline nose is without discharge oral mucosa is pink and moist without lesion. NECK: Supple no rigidity no lymphadenopathy no thyromegaly no carotid bruits no JVD no masses. HEART: Regular rate and rhythm I do not appreciate any ectopy or rub. No murmur. LUNGS: Clear to auscultation bilaterally and anteriorly with no evidence of adventitious sounds/wheezes rales or rhonchi. ABDOMEN: Soft nontender, no rebound, no peritoneal signs, positive bowel sounds, no appreciable organomegaly. EXTREMITIES: Intact, no peripheral cyanosis, clubbing or edema. Strength is 5 out of 5 in extremities x4,. NEUROLOGICAL: Cranial nerves II through XII are grossly intact with no focal deficit elicited upon examination. Results & Data Results & Data Vital Signs (Past 12 Hours) Vital Signs Temp Pulse Pulse Resp BP Pulse Ox O2 Del Method 09/08/25 11:15 56 L 18 129/92 94 Room Air 11/03/25 11:03 36.5 C 66 18 95 Room Air Code Status & VTE Plan Code Status Full code. I personally discussed with patient at the bedside VTE Prophylaxis Plan VTE Prophylaxis will be ordered: Yes PG Care Time/CCT Total # of Minutes Spent Total Time Spent with Patient: Total time spent is greater than 50% in coordination of care (as documented) at patient's floor/unit and/or counseling patient: Coding Level of Care Code 85682 INT INP/OBS CARE 2/55MIN Diagnoses Calculus of distal right ureter N20.1
[2025-09-08 12:36] LABS: Alanine Aminotransferase 13.0 U/L (7-52); Albumin Globulin Ratio 1.3 (0.9-2); Albumin Level 4.0 gm/dl (3.4-5.0); Alkaline Phosphatase 56.0 U/L (34-104); Anion Gap 5.0 (3-11); Bilirubin,Total 0.9 mg/dl (0.2-1.0); Blood Urea Nitrogen 15.0 mg/dl (6-23); Calcium 9.1 mg/dl (8.6-10.3); Carbon Dioxide 29.0 mmol/L (21-32); Chloride 105.0 mmol/L (98-107); Creatinine Clr Calc Pharmacy 108.7 ml/min; Globulin 3.2 gm/dl (2.5-4.0); Glucose 95.0 mg/dl (70-99(Fasting)); Potassium 3.9 mmol/L (3.5-5.1); Sodium 139.0 mmol/L (136-145); Total Protein 7.2 gm/dl (6.0-8.3)
--- NOTE | 2025-09-08 12:40 | Urology Consultation ---
Date of Consultation September 08, 2025 Assessment & Plan (1) Bilateral hydronephrosis: (2) Congenital obstructive megaureter: (3) Calculus of distal right ureter: 19-year-old female with history of bilateral hydronephrosis attributed to congenital obstructive megaureter who presented to the ED early this morning for evaluation of right flank pain. CT abdomen pelvis showed a faint intraluminal hyperdensity in the distal right ureter measuring 9 x 4 mm with slight progression of moderate right hydroureteronephrosis. His pain improved and he was discharged to home. He returned to ED due to intractable pain and is being admitted for pain management. Urology is consulted for stone/hydro Patient is afebrile and hemodynamically stable Lab work reviewedcreatinine 1.11, WBC 9.76, hemoglobin 13.3 Urinalysis is not suggestive of infection CT AP reviewed and discussed with patientfaint hyperdensity in the distal right ureter measuring 9 x 4 mm, 120 HU We reviewed and discussed options including trial of passage vs surgical intervention He likely can pass hyperdensity/debris since his ureter is large caliber Offered surgical intervention with right ureteral stent placement Patient declines surgical intervention Continue supportive care and pain management GI will sign off, please contact the service with any additional questions or changes in clinical status Supervising Physician Co-Signing Physician Notes Discussed patient with DANIELA. Agree with plan. Patient declined stent procedure so urology to sign off History of Present Illness Reason for Consultation: stone/hydro History of Present Illness This is a 19-year-old male with history of bilateral hydronephrosis attributed to congenital obstructive megaureter who presented to the emergency department today at 3 AM for evaluation of acute onset of right flank pain. He was afebrile and hemodynamically stable in ED. Lab work showed creatinine of 1.2, WBC 12.21. Urinalysis showed 1+ blood, 11-20 RBCs, otherwise negative. CT abdomen and pelvis showed a faint intraluminal hyperdensity in the distal right ureter measuring 9 x 4 mm with slight progression of moderate right hydroureteronephrosis. Interval improvement of left hydroureteronephrosis; moderate dilatation of the left lower ureter distal to the iliac crossing level. Hyperdensity of the left distal ureter no longer seen. He was treated with acetaminophen, hydromorphone, ondansetron and tamsulosin. His pain improved and he was discharged to home. He returned to ED this morning due to intractable pain despite taking oxycodone and ibuprofen. Patient is being admitted to the hospital medicine service due to intractable pain. He is afebrile and hemodynamically stable in the emergency department. Lab work independently reviewed. Creatinine 1.10, WBC 9.76, hemoglobin 13.3. Urology is consulted for stone/hydro. Patient seen and examined in the emergency department. He is resting comfortably in litter. He reports that right flank pain has significantly improved since arrival, currently comfortable. He is voiding without difficulty. No dysuria or hematuria. No nausea or vomiting at present. No fever or chills. Allergies Allergy/AdvReac Type Severity Reaction Status Date / Time No Known Allergies Allergy Verified 09/08/25 13:26 Home Medications Medication Instructions Recorded Confirmed Type No Known Home Medications 09/08/25 09/08/25 History Patient History Social History Smoking Status: Never smoker Hx Alcohol Use: Yes Alcohol type: beer and hard liquor Hx Substance Use: No Preferred Language: Qatari Communication Ability: Effective Advanced Quality Engineer Required: No Beliefs That Will Affect Care: None Current Living Situation: Alone Current Living Situation Comment: apartment, [employer] student Feels Safe at Home: Yes Assistive Devices: None Review of Systems Constitutional: as per Subjective / HPI Genitourinary: + as per Subjective / HPI Physical Exam Constitutional: well developed and well nourished; no acute distress Respiratory: normal respiratory effort; no respiratory distress and no labored breathing Gastrointestinal (Abdomen): Inspection/Auscultation: abdomen normal to inspection Musculoskeletal: Head/Neck/Chest: normocephalic Neurologic: moves all extremities and awake Psychiatric: Orientation: alert and oriented x 3 Results & Data Vital Signs (Past 12 Hours) Vital Signs Temp Pulse Pulse Resp BP Pulse Ox O2 Del Method 09/08/25 11:15 56 L 18 129/92 94 Room Air 09/08/25 11:03 36.5 C 66 18 95 Room Air PG Care Time/CCT Total # of Minutes Spent Total Time Spent with Patient: Total time spent is greater than 50% in coordination of care (as documented) at patient's floor/unit and/or counseling patient: Coding Level of Care Code 89535 IN/OBS CONSULT LVL 4,60M Diagnoses Bilateral hydronephrosis N13.30 Congenital obstructive megaureter Q62.2 Calculus of distal right ureter N20.1
[2025-09-08] MEDS: SODIUM CHLORIDE 0.9% 1,000 ML IV SCH (12:41)
[2025-09-08 13:04] VITALS: RESP 16
[2025-09-08 13:38] LABS: Appearance Urine Clear (Clear); Bacteria Urine Automated None Seen (None Seen); Cast Urine Automated 0-2 /lpf (0-2); Epithelial Cell Urine Auto 0-2 /hpf (0-2); Glucose Urine UA Negative (Negative); WBC Urine Automated 0-5 /hpf (0-5)
--- NOTE | 2025-09-08 16:39 | Discharge Summary ---
Discharge Summary Date of Service September 08, 2025 Principal Dx & Hospital Course #1 = Principal Diagnosis (1) Calculus of distal right ureter: Plan Santy Jose is a 19 year old male admitted to [facility] on September 08, 2025 due to renal colic kidney stone pain. He was treated with pain and nausea medications and IV fluids. He declined ureteral stent insertion and his pain now appears to be well controlled. Tamsulosin was given during his prior ER visit the same morning. He should strain all urine to capture stone to bring to his urology appointment. No routine PCP follow up required. 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 He has a history of nephrolithiasis and urolithiasis. He was in the ER last night for an extended period of time diagnosed with a 9 x 4 distal right ureter stone. He was treated medically and discharged to home. He took his analgesics and Flomax excetra he is having intractable pain and therefore presents back to the ER today. Urology was consulted. We were called admit the patient for further evaluation and treatment failed outpatient treatment of urolithiasis with hydronephrosis. Discharge Exam Gastrointestinal (Abdomen) normal bowel sounds, soft, nontender, no hepatosplenomegaly Genitourinary no CVA tenderness Discharge Plan Discharge Items Patient Disposition: Home - Self-Care Reason For Visit: FLANK PAIN Discharge Diagnosis: Renal Colic pain Kidney stone Condition on Discharge: Good Activity: Resume your previous activity Non-emergency contact: Primary Care Provider and Urologist Call non-emergency contact if: you have any medication questions and your symptoms worsen Follow-up/Referrals: [facility] [Primary Care Provider] - Federico Yeung MD [Physician] - (Follow up kidney stone/sludge) Diet: Regular Addtl Attending Provider Instructions: You were admitted to [facility] on September 08, 2025 due to renal colic kidney stone pain. You were treated with pain and nausea medications and IV fluids. You declined ureteral stent insertion and your pain now appears to be well controlled. Tamsulosin was given during your prior ER visit the same morning. 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 You can also take acetaminophen and ibuprofen for pain in addition to the oxycodone as these are sometimes more effective. Please strain all urine to capture stone to bring to your urology appointment. Please follow up with urology for ongoing care. Pending Studies at Discharge: No Stand-Alone Forms: My [facility], Smoking Cessation Medications and DC Order Prescriptions: No Action tamsulosin 0.4 mg Capsule 0.4 mg PO DAILY ondansetron 4 mg Tablet,Disintegrating 4 mg PO Q6H PRN (Reason: Nausea And Vomiting) oxycodone 5 mg Tablet 5 mg PO Q6H PRN (Reason: Pain) Discharge Orders: Discharge Order (Routine); Ordered 09/08/25 Ordered By: Huber Ambrocio Admission Data Admit Date/Time: 09/08/25 12:27 Attending Provider: Mauricio Mcintosh Admit Provider: Mauricio Mcintosh Primary Care Provider: [facility] Other Providers: Mauricio Mcintosh; Federico Yeung Other Interventions: Discharge Summary Assessment (RN) Last Done: 09/08/25 17:02 Hospital Stay Data Consultations 09/08/25 11:56 ED Decision to Admit Stat 09/08/25 12:27 Consult Urology Routine Pending Results Patient Have Any Pending Studies at Discharge: No Discharge Instructions Given to Patient (Per Discharging Provider) You were admitted to [facility] on September 08, 2025 due to renal colic kidney stone pain. You were treated with pain and nausea medications and IV fluids. You declined ureteral stent insertion and your pain now appears to be well controlled. Tamsulosin was given during your prior ER visit the same morning. 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 You can also take acetaminophen and ibuprofen for pain in addition to the oxycodone as these are sometimes more effective. Please strain all urine to capture stone to bring to your urology appointment. Please follow up with urology for ongoing care. Total Time Total Time Spent Total Time Spent (In Minutes): 25 Coding Level of Care Code None Diagnoses Calculus of distal right ureter N20.1
[2025-09-08 16:58] VITALS: BP 106/66; PULSE 63; TEMP 97.5; O2SAT 97
== END 2025-09-08 17:37 | disposition home or self-care (01) | DRG 694 ==
LOC: ED 10:47 → EDINP 12:27 → INTOOBSV 12:27 → 2N 15:19